=== PATIENT | male | born 1970 | race Caucasian/White ===

== ENCOUNTER 2017-09-13 21:05 | Emergency (ER) | payer SELFPAY ==
[~2017-09-13] VITALS: Ht 160 cm; Wt 87.5 kg
[2017-09-13 21:25] VITALS: Ht 160 cm; Wt 87.5 kg
[2017-09-13 21:53] VITALS: BP 155/89
== END 2017-09-13 21:53 | disposition home or self-care (01) ==
LOC: ED 21:05
DX: B01.9 Varicella without complication (principal)